=== PATIENT | female | born 1975 | race Caucasian/White ===

== ENCOUNTER 2017-06-02 22:11 | Emergency (ER) | payer MEDICAID ==
[~2017-06-02] VITALS: Ht 139.7 cm; Wt 46.3 kg
[~2017-06-02 22:11] MED LIST: PRILOSEC40 MG PO
[2017-06-02 22:40] VITALS: BP 105/60
--- NOTE | 2017-06-03 00:08 | NUR ---
PT TAKEN TO BED 3
--- NOTE | 2017-06-03 00:32 | NUR ---
Dr. Nichols evaluating patient at bedside.
[2017-06-03] MEDS ORDERED: ONDANSETRON 4 MG/2 ML VIAL IVP ONE (00:40)
[2017-06-03] MEDS ORDERED: MECLIZINE 25 MG TAB PO ONE (00:40)
[2017-06-03] MEDS ORDERED: NACL 0.9% 1,000 ML IV ONE (00:40)
[2017-06-03] MEDS ORDERED: KETOROLAC 30 MG/ML VIAL IVP ONE (00:40)
--- NOTE | 2017-06-03 01:08 | NUR ---
42Y/F PATIENT PRESENTS TO ED WITH C/O FEVER X 4DAYS . PT STATES GENERALIZED BODY PAIN WITH FEVER X 4 DAYS . DENIES N/V/D; SKIN IS PINK/WARM/DRY; AAOX4 WITH EVEN AND STEADY GAIT; LUNGS CLEAR BL; HR EVEN AND REGULAR; PT DENIES ANY FEVER, CP, SOB, OR COUGH AT THIS TIME; PATIENT STATES PAIN OF 7/10 AT THIS TIME; VSS; PATIENT POSITIONED FOR COMFORT; HOB ELEVATED; BEDRAILS UP X2; BED DOWN. ER MD MADE AWARE OF PT STATUS.
[2017-06-03] MEDS ORDERED: methylPREDNISolone SS 125 MG/2 ML VIAL IVP ONE (02:10)
[2017-06-03 02:30] VITALS: BP 108/65
--- NOTE | 2017-06-03 02:30 | NUR ---
Patient discharged with v/s stable. Written and verbal after care instructions given and explained. Patient alert, oriented and verbalized understanding of instructions. Ambulatory with steady gait. All questions addressed prior to discharge. ID band removed. Patient advised to follow up with PMD. Rx of TRAMADOL HYDROCHLORIDE given. Patient educated on indication of medication including possible reaction and side effects. Opportunity to ask questions provided and answered.
== END 2017-06-03 02:30 | disposition home or self-care (01) ==
LOC: MED 22:11
DX: B34.9 Viral infection, unspecified (principal); L93.0 Discoid lupus erythematosus; K21.9 Gastro-esophageal reflux disease without esophagitis
CPT/HCPCS: 36415; 80053; 81002; 81025; 84550; 85025; 85610; 85730; 86140; 87040; 96361; 96374; 96375; 99284; J1885; J2405; J2930; J7030; J8597

== ENCOUNTER 2018-12-04 20:40 | Emergency (ER) | payer MEDICAID ==
[~2018-12-04] VITALS: Ht 139.7 cm; Wt 48.1 kg
[~2018-12-04 20:40] MED LIST changes: +OMEP40EC1 PO; -PRILOSEC40 MG PO
[2018-12-04 20:48] VITALS: BP 129/90
--- NOTE | 2018-12-04 20:50 | NUR ---
TO LOBBY A/W BED, IRENE PARKS NOTED
--- NOTE | 2018-12-04 22:26 | NUR ---
PT AMBULATED TO ER BED 01
--- NOTE | 2018-12-04 22:30 | NUR ---
43/F PRESENTS TO ED WITH FAMILY/FRIEND, C/O L FLANK PAIN, RADIATING DIFFUSELY, X1 DAY. PT STATED THAT SHE HAD BEEN HAVING "STOMACH PROBLEMS" SUCH BLOATING AND UPSET STOMACH, X1 MONTH. PT REPORTS NAUSEA. DENIES FEVER, VOMITING, CONSTIPATION, DIARRHEA OR DYSURIA. LBM 2 DAYS AGO, REPORTS WAS NORMAL/SOFT. PT AOX4, GCS 15, RR EVEN AND UNLABORED. BS ACTIVE X4, ABD SOFT ROUND MILDLY TENDER TO L FLANK AND RLQ. HX LUPUS, RX HYDROXYCHHLOROQUINE DENIES OTC
[2018-12-04] MEDS ORDERED: PANTOPRAZOLE 40 MG TABEC PO ONE (23:40)
[2018-12-04 23:51] VITALS: BP 118/77
--- NOTE | 2018-12-04 23:51 | NUR ---
Patient discharged with v/s stable. Written and verbal after care instructions given and explained. Patient alert, oriented and verbalized understanding of instructions. Ambulatory with steady gait. All questions addressed prior to discharge. ID band removed. Patient advised to follow up with PMD. Rx of Protonix given. Patient educated on indication of medication including possible reaction and side effects. Opportunity to ask questions provided and answered.
== END 2018-12-04 23:51 | disposition home or self-care (01) ==
LOC: MED 20:40
DX: K29.70 Gastritis, unspecified, without bleeding (principal); K21.9 Gastro-esophageal reflux disease without esophagitis; Z79.899 Other long term (current) drug therapy
CPT/HCPCS: 74022; 81002; 81025; 99283